=== PATIENT | male | born 1955 | race Caucasian/White ===

== ENCOUNTER 2017-04-29 11:22 | Observation (INO) | payer MEDICAID, OTHER ==
[2017-04-29 11:23] VITALS: BMI 28.1
--- NOTE | 2017-04-29 11:47 | C.PDOC ---
Time Seen by Provider: 04/29/17 11:40 Chief Complaint (Nursing): Weakness/Neurological Deficit History Per: Patient History/Exam Limitations: no limitations Current Symptoms Are (Timing): Still Present Past Medical History Reviewed: Historical Data, Nursing Documentation, Vital Signs Vital Signs: Last Vital Signs Temp 97.6 F 04/29/17 11:29 Pulse 58 L 04/29/17 11:29 Resp 18 04/29/17 11:29 BP 179/78 H 04/29/17 11:29 Pulse Ox 100 04/29/17 11:29 - Medical History PMH: HTN - [facility] Procedures VACCINATION NEC (02/05/13) Family History: States: Unknown Family Hx - Social History Hx Tobacco Use: No Hx Alcohol Use: Yes Hx Substance Use: No (Formerly used marijuana) - Immunization History Hx Tetanus Toxoid Vaccination: No Hx Influenza Vaccination: No Hx Pneumococcal Vaccination: No ED Course And Treatment O2 Sat by Pulse Oximetry: 100 (RA) Pulse Ox Interpretation: Normal Disposition - Disposition - Scribe Statement The provider has reviewed the documentation as recorded by the Scribe [place] Hutchinson All medical record entries made by the Scribe were at my direction and personally dictated by me. I have reviewed the chart and agree that the record accurately reflects my personal performance of the history, physical exam, medical decision making, and the department course for this patient. I have also personally directed, reviewed, and agree with the discharge instructions and disposition.
--- NOTE | 2017-04-29 12:00 | C.PDOC ---
History Of Present Illness 61 year old male presents to the ED with complaints of persistent localized right facial weakness and numbness beginning last night. Patient states "feels like when you go to the dentist and they give you a shot." He states sensations were constant but now has improved sensation. Patient has had similar episode in the past, several months ago, but notes symptoms spontaneously resolved. Patient denies other associated areas of weakness or numbness. PERSIST R FACIAL WEAKNESS AND NUMBNESS SINCE LAST NIGHT. LOCALIZED, "FEELS LIKE WHEN YOU GO TO THE DENTIST AND THEY GIVE YOU A SHOT". CONSTANT BUT NOW IMPROVED SENSATION. DENIES OTHER ASSOC WEAK/NUMB. PS HAD SIM EPISODE SEV MONTHS AGO BUT SPONT RESOLVED. EXAM NONTOXIC NEURO SEE NIH REMAINDER NEG Time Seen by Provider: 04/29/17 11:40 Chief Complaint (Nursing): Weakness/Neurological Deficit History Per: Patient History/Exam Limitations: no limitations Onset/Duration Of Symptoms: Hrs (began last night ) Current Symptoms Are (Timing): Still Present Recent travel outside of the [place]: No Additional History Per: Prior Records Past Medical History Reviewed: Historical Data, Nursing Documentation, Vital Signs Vital Signs: Last Vital Signs Temp 97.6 F 04/29/17 11:29 Pulse 66 04/29/17 13:05 Resp 12 04/29/17 13:05 BP 165/89 H 04/29/17 13:05 Pulse Ox 100 04/29/17 14:17 - Medical History PMH: HTN - [facility] Procedures VACCINATION NEC (02/05/13) Family History: States: Unknown Family Hx - Social History Hx Tobacco Use: No Hx Alcohol Use: Yes Hx Substance Use: No (Formerly used marijuana) - Immunization History Hx Tetanus Toxoid Vaccination: No Hx Influenza Vaccination: No Hx Pneumococcal Vaccination: No Review Of Systems Constitutional: Negative for: Fever, Chills Cardiovascular: Negative for: Chest Pain, Palpitations Respiratory: Negative for: Cough, Shortness of Breath Gastrointestinal: Negative for: Nausea, Vomiting, Abdominal Pain, Diarrhea Neurological: Positive for: Weakness (localized right side of face ), Numbness ( localized right side of face ) Physical Exam - Physical Exam Appears: Non-toxic, No Acute Distress Skin: Warm, Dry, No Rash Head: Atraumatic, Normacephalic, No Tenderness Eye(s): bilateral: Normal Inspection, PERRL, EOMI Oral Mucosa: Moist Neck: Supple Chest: Symmetrical, No Deformity Cardiovascular: Rhythm Regular, No Murmur Respiratory: No Rales, No Rhonchi, No Wheezing, Other (clear to auscultation bilaterally ) Gastrointestinal/Abdominal: Soft, No Tenderness, No Distention, No Guarding, No Rebound Extremity: Normal ROM, No Tenderness Neurological/Psych: Oriented x3 ED Course And Treatment - Laboratory Results Result Diagrams: 04/29/17 12:40 04/29/17 12:40 ECG: Interpreted By Me, Viewed By Me ECG Rhythm: Sinus Rhythm Rate From EC O2 Sat by Pulse Oximetry: 100 (RA) Pulse Ox Interpretation: Normal - Radiology CXR: Interpreted by Me, Viewed By Sd Nexus Criteria: Negative - CT Scan/US CT - Head Other Rad Studies (CT/US): Read By Radiologist, Radiology Report Reviewed CT/US Interpretation: PROCEDURE: CT HEAD WITHOUT CONTRAST. HISTORY: stroke alert. COMPARISON: None available. TECHNIQUE: Axial computed tomography images were obtained through the head/brain without intravenous contrast. Radiation dose: Total exam DLP = 1048.74 mGy-cm. This CT exam was performed using one or more of the following dose reduction techniques: Automated exposure control, adjustment of the mA and/or kV according to patient size, and/ or use of iterative reconstruction technique. FINDINGS: HEMORRHAGE: No intracranial hemorrhage. BRAIN: No mass effect or edema. No atrophy. Minimal chronic periventricular white matter lucency. Patchy subcortical white matter lucency bilaterally, consistent with chronic microvascular ischemic change. VENTRICLES: Unremarkable. No hydrocephalus. CALVARIUM: Unremarkable. PARANASAL SINUSES: Chronic ethmoid and sphenoid sinusitis. MASTOID AIR CELLS: Unremarkable as visualized. No inflammatory changes. OTHER FINDINGS: None. IMPRESSION: No evidence of acute infarct. Chronic microvascular ischemic change. No intracranial mass or hemorrhage. The findings this examination were discussed, by telephone, with Dr. Barber at 12:12 p.m. on 04/29/2017. Progress Note: EKG, CXR, Head CT, blood work, and labs were ordered. NIHSS Stroke Scale - Date/Time Evaluation Performed Date Performed: 04/29/17 Time Performed: 11:55 When Was NIHSS Performed: Baseline - How Severe is the Stroke Level of Consciousness: 0=Alert LOC to Questions: 0=Both comments correct LOC to commands: 0=Obeys both correctly Best Gaze: 0=Normal Visual: 0=No visual loss Facial: 1=Minor asymmetry Motor Arm - Left: 0=No drift Motor Arm - Right: 0=No drift Motor Leg - Left: 0=No drift Motor Leg - Right: 0=No drift Limb Ataxia: 0=Absent Sensory: 0=Normal Best Language: 0=No aphasia Dysarthia: 0=Normal articulation Extinction & Inattention (Neglect): 0=Normal, no object Score: 1 Severity Of Stroke: 1-4 = Minor Stroke Progress - Re-Evaluation Re-evaluation Note: 04/29/17 12:11 D/W DR GOMEZ: NO ACUTE FINDINGS D/W DR NOVAK WILL EVAL INE R 04/29/17 12:47 S/P EVAL DR NOVAK, RECOMMENDS FOR ADMISSION AND MRI. WILL CONSULT 04/29/17 13:18 D/W DR PATINO C/F PMD WILL ADMIT - Data Reviewed Data Reviewed: Lab, Diagnostic imaging, EKG, Old records - Critical Care Critical Care Time: 90 minutes rTPA Inclusion/Exclusion - Refusal of Treatment Patient Refused Treatment: No - Inclusion Criteria for Altepase Patient is 18 years or Older: Yes The Clinical Diagnosis of Ischemic Stroke That is Causing a Potentially Disabling Neurological Deficit: Yes Time of Onset is Well Established to be Less Than 270 Minute Before Treatment Would Begin: No Risk/Benefit Discussed With Patient/Family Member Present: No - Exclusion Criteria for Altepase Uncontrolled Hypertension at Time of Treatment (Systolic BP above 185 or Diastolic BP above 110 mmHg): No - Warning to TPA With Conditions Condition: Stroke Serevity Too Mild, Care Team Unable to Determine Eligibilty Disposition Counseled Patient/Family Regarding: Studies Performed, Diagnosis - Disposition Disposition: HOSPITALIZED Disposition Time: 13:19 Condition: STABLE - POA Present On Arrival: None - Clinical Impression Clinical Impression: Facial weakness, TIA (transient ischemic attack) - Scribe Statement The provider has reviewed the documentation as recorded by the Scribe [place] Hutchinson All medical record entries made by the [place] were at my direction and personally dictated by me. I have reviewed the chart and agree that the record accurately reflects my personal performance of the history, physical exam, medical decision making, and the department course for this patient. I have also personally directed, reviewed, and agree with the discharge instructions and disposition. Decision To Admit - Pt Status Changed To: Hospital Disposition Of: Observation - . Bed Request Type: Telemetry Admitting Physician: Marc Garcia Patient Diagnosis: Facial weakness, TIA (transient ischemic attack)
--- NOTE | 2017-04-29 12:21 | CT ---
PROCEDURE: CT HEAD WITHOUT CONTRAST. HISTORY: stroke alert COMPARISON: None available. TECHNIQUE: Axial computed tomography images were obtained through the head/brain without intravenous contrast. Radiation dose: Total exam DLP = 1048.74 mGy-cm. This CT exam was performed using one or more of the following dose reduction techniques: Automated exposure control, adjustment of the mA and/or kV according to patient size, and/or use of iterative reconstruction technique. FINDINGS: HEMORRHAGE: No intracranial hemorrhage. BRAIN: No mass effect or edema. No atrophy. Minimal chronic periventricular white matter lucency. Patchy subcortical white matter lucency bilaterally, consistent with chronic microvascular ischemic change. VENTRICLES: Unremarkable. No hydrocephalus. CALVARIUM: Unremarkable. PARANASAL SINUSES: Chronic ethmoid and sphenoid sinusitis MASTOID AIR CELLS: Unremarkable as visualized. No inflammatory changes. OTHER FINDINGS: None. IMPRESSION: No evidence of acute infarct. Chronic microvascular ischemic change. No intracranial mass or hemorrhage. The findings this examination were discussed, by telephone, with Dr. Barber at 12:12 p.m. on 04/29/2017. Areas are
--- NOTE | 2017-04-29 12:37 | RAD ---
PROCEDURE: CHEST RADIOGRAPH, 1 VIEW HISTORY: TIA COMPARISON: 02/05/2013 FINDINGS: LUNGS: No focal infiltrate or effusion. PLEURA: No pneumothorax or pleural fluid seen. CARDIOVASCULAR: Normal. OSSEOUS STRUCTURES: No significant abnormalities. VISUALIZED UPPER ABDOMEN: Normal. OTHER FINDINGS: None. IMPRESSION: No active disease.
[2017-04-29 12:43] LABS: BASO % 0.7 % (0.0-2.0); EOS # 0.1 K/uL (0.0-0.7); EOS % 1.4 % (0.0-4.0); HEMATOCRIT 42.4 % (35.0-51.0); LYMPH % 33.4 % (20.0-40.0); MEAN CELL VOLUME 90.7 fL (80.0-94.0); MEAN CORPUSCULAR HEMOGLOBIN 31.9 pg (27.0-31.0); MEAN CORPUSCULAR HGB CONC 35.1 g/dL (33.0-37.0); MEAN PLATELET VOLUME 9.8 fL (7.2-11.7); MONO # 0.5 K/uL (0.0-0.8); MONO % 7.8 % (0.0-10.0); NRBC % 0.1 % (0.0-2.0); RED CELL DISTRIBUTION WIDTH 12.7 % (11.5-14.5); WHITE BLOOD COUNT 5.9 K/uL (4.8-10.8)
[2017-04-29 12:57] LABS: CALCIUM 8.6 mg/dl (8.6-10.4); GFR AFRICAN-AMERICAN > 60; GLUCOSE,RANDOM 93 mg/dL (75-110)
[2017-04-29 13:00] LABS: BLOOD UREA NITROGEN 14 mg/dL (9-20); CARBON DIOXIDE 27 mmol/L (22-30); CHLORIDE 105 mmol/L (98-107); POTASSIUM 4.3 mmol/L (3.6-5.2); SODIUM 141 mmol/L (132-148)
[2017-04-29 15:28] VITALS: RESP 20
--- NOTE | 2017-04-29 15:56 | CP.PCM.CON ---
History of Present Illness - History of Present Illness History of Present Illness: Mr. Devine is a 61-year-old man with a past medical history of hypertension who states that last night he developed right facial numbness and it has still not subsided. He feels that it is similar to a numbness experienced when he goes to the dentist. There are no other focal deficits or other associated symptoms. Review of Systems - Review of Systems All systems: reviewed and no additional remarkable complaints except Past Patient History - Past Social History Smoking Status: Never Smoked - CARDIAC Hx Hypertension: Yes - PSYCHIATRIC Hx Substance Use: No (Formerly used marijuana) - SURGICAL HISTORY Hx Surgeries: No Meds Allergies/Adverse Reactions: Allergies Allergy/AdvReac Type Severity Reaction Status Date / Time No Known Allergies Allergy Verified 04/29/17 11:34 Physical Exam - Constitutional Appears: Well - Head Exam Head Exam: ATRAUMATIC, NORMAL INSPECTION, NORMOCEPHALIC - Eye Exam Eye Exam: EOMI, Normal appearance, PERRL - ENT Exam ENT Exam: Mucous Membranes Moist, Normal Exam - Neck Exam Neck exam: Positive for: Normal Inspection - Respiratory Exam Respiratory Exam: Clear to Auscultation Bilateral, NORMAL BREATHING PATTERN - Cardiovascular Exam Cardiovascular Exam: REGULAR RHYTHM, +S1, +S2 - GI/Abdominal Exam GI & Abdominal Exam: Normal Bowel Sounds, Soft. absent: Tenderness - Rectal Exam Rectal Exam: Deferred - Extremities Exam Extremities exam: Positive for: normal inspection - Back Exam Back exam: NORMAL INSPECTION - Neurological Exam Neurological exam: Alert, CN II-XII Intact, Normal Gait, Oriented x3, Reflexes Normal Additional comments: Decreased sensation over the V3 distribution on the right side as compared with the left. - Psychiatric Exam Psychiatric exam: Normal Affect, Normal Mood - Skin Skin Exam: Dry, Intact, Normal Color, Warm Results - Vital Signs Recent Vital Signs: Last Vital Signs Temp 97.9 F 04/29/17 15:27 Pulse 63 04/29/17 15:27 Resp 20 04/29/17 15:27 BP 197/86 H 04/29/17 15:27 Pulse Ox 98 04/29/17 15:27 - Labs Result Diagrams: 04/29/17 12:40 04/29/17 12:40 Labs: Laboratory Results - last 24 hr 04/29/17 04/29/17 12:40 12:40 WBC 5.9 RBC 4.67 Hgb 14.9 Hct 42.4 MCV 90.7 MCH 31.9 H MCHC 35.1 RDW 12.7 Plt Count 194 MPV 9.8 Neut % (Auto) 56.7 Lymph % (Auto) 33.4 [place] % (Auto) 7.8 Eos % (Auto) 1.4 Baso % (Auto) 0.7 Neut # 3.3 Lymph # 2.0 [place] # 0.5 Eos # 0.1 Baso # 0.0 Sodium 141 Potassium 4.3 Chloride 105 Carbon Dioxide 27 Anion Gap 13 BUN 14 Creatinine 0.6 L Est GFR ( Amer) > 60 Est GFR (Non-Af Amer) > 60 Random Glucose 93 Calcium 8.6 Troponin I 0.0130 - Imaging and Cardiology CT scan - head Status: Image reviewed by me, Report reviewed by me (No acute findings. ) Assessment & Plan (1) Rt facial numbness Assessment and Plan: Will obtain MRI of the brain and MRA of the head/neck to rule out a possible infarct in a small thalamic region or lacunar cortical. The patient is extremely hypertensive, but we will allow for permissive hypertension for now and only treat BP higher than 220/110 mm Hg. Continue aspirin 81 mg daily, check lipid panel HbA1c, TSH, B12, folate. Will start NS at 100 mL/hr. DVT Px , PT/OT eval. Thank you. Status: Acute Priority: High
[2017-04-29] MEDS ORDERED: Gadodiamide 287 mg/ml 20 ml IV ONE (16:34)
--- NOTE | 2017-04-29 18:42 | CP.PCM.HP ---
History of Present Illness - History of Present Illness History of Present Illness: chief complaints: Right-sided weakness History of present illness: 61-year-old male with history of hypertension, not on any medication came to the emergency room today with a feeling of numbness, heaviness, any weakness in the right side of the body. Patient is doing well, 3 days ago, but recently he started having some heaviness in the right upper , and also some numbness and involving the right side of the face, he was also feeling some swelling and drooping of the face last night. This morning he called me on the phone, and at this and to go to the emergency room. In the emergency room code Alert was done, seen by neurologist, CAT scan of the head was done nonspecifiPatient needed hospitalization. Currently he is complaining of pain in the back of the head, no visual symptoms , he is feeling better, symptoms of heaviness is still noted, on and off, involving the right side of the face and right upper asymmetry. He has no difficulty in swallowing, his speech is normal, he is able to ambulate , and walkwithout any problem. In March 18, 2016 patient went to the emergency room at [facility] with the rash. Patient stating that he was bit by the tick, and he developed significant rash around bite area in the right forearm region. But when he went to the emergency room he was seen by, and that time it was noticed that he was having crepe sole scourer rash, was thought to be an allergy, and given. Prednisone. Later patient went to see PMD, Dr. Souza, and the blood works was done, and the symptoms was persistently noted. Since then he is concerned that he may have a Lyme disease, and he is taking penicillin antibiotic by himself. He is having a rash on and off, especially generalized and in the anterior abdominal area, brought in, and legs. The rash is itching, sometimes after eating, associate with the impetiginous lesion, and the skin breakdown and watery liquid secretion noted. No blisters. Patient is also complaining of some generalized pain, body pain on and off. Past medical history: hypertension, not on any medication Allergy: No known drug allergy. Personal history: Patient is a nonsmoker, nonalcoholic. No drug abuse. Currently not working Family history noncontributory. Review of systems: Patient is currently having some headache, denies any chest pain or shortness of breath. right-sided weakness,facial droop, noted. On examination: HEENT PERRLA, neck supple No thyromegaly was noted and no cervical adenopathy noted Chest bilateral good air entry, no wheezing or rales noted CVS regular heart sound, no murmur Abdomen soft and no organomegaly Extremities no pedal edema, no leg swelling, pedal pulses are good. [employer] alert awake oriented x3 ossibly mild residual weakness in the right CAT scan of the head is nonspecific. Labs nonspecific. eKG normal sinus rhythm. Elevated blood pressure noted. Assessment and recommendation: 60-year-old male came to the office with a multiple skin lesions. with a history of hypertension, elevated blood pressure noted. Will start the patient on low-dose anti- hypertensions. Low-dose aspirin. Carotid Doppler, echocardiogram, serology. Less likely vascular in origin. We will get a connective tissue workup also. underlying demyelinating disease cannot be ruled out MRI currently pending Lyme titer advised. CBC, ESR, Lyme screening, Lyme titer. CMP advised. Will follow the patient. Present on Admission - Present on Admission Any Indicators Present on Admission: No History of DVT/PE: No History of Uncontrolled Diabetes: No Urinary Catheter: No Decubitus Ulcer Present: No Past Patient History - Past Medical History & Family History Past Medical History?: Yes - Past Social History Smoking Status: Former Smoker - CARDIAC Hx Cardiac Disorders: Yes Hx Hypertension: Yes - PULMONARY Hx Respiratory Disorders: Yes Hx Asthma: Yes (childhood) - NEUROLOGICAL Hx Neurological Disorder: No - HEENT Hx HEENT Problems: No - RENAL Hx Chronic Kidney Disease: No - ENDOCRINE/METABOLIC Hx Endocrine Disorders: No - HEMATOLOGICAL/ONCOLOGICAL Hx Blood Disorders: No - INTEGUMENTARY Hx Dermatological Problems: No - MUSCULOSKELETAL/RHEUMATOLOGICAL Hx Musculoskeletal Disorders: No Hx Falls: No - GASTROINTESTINAL Hx Gastrointestinal Disorders: No - GENITOURINARY/GYNECOLOGICAL Hx Genitourinary Disorders: No - PSYCHIATRIC Hx Psychophysiologic Disorder: No Hx Substance Use: No (Formerly used marijuana) - SURGICAL HISTORY Hx Surgeries: No - ANESTHESIA Hx Anesthesia: Yes Hx Anesthesia Reactions: No Hx Malignant Hyperthermia: No Has any member of the family had a problem w/ anesthesia?: No Meds Allergies/Adverse Reactions: Allergies Allergy/AdvReac Type Severity Reaction Status Date / Time No Known Allergies Allergy Verified 04/29/17 11:34 Results - Vital Signs Recent Vital Signs: Last Vital Signs Temp 97.9 F 04/29/17 15:27 Pulse 68 04/29/17 18:23 Resp 20 04/29/17 15:27 BP 197/86 H 04/29/17 15:27 Pulse Ox 98 04/29/17 15:27 - Labs Result Diagrams: 04/29/17 12:40 04/29/17 12:40 Labs: Laboratory Results - last 24 hr 04/29/17 04/29/17 12:40 12:40 WBC 5.9 RBC 4.67 Hgb 14.9 Hct 42.4 MCV 90.7 MCH 31.9 H MCHC 35.1 RDW 12.7 Plt Count 194 MPV 9.8 Neut % (Auto) 56.7 Lymph % (Auto) 33.4 [place] % (Auto) 7.8 Eos % (Auto) 1.4 Baso % (Auto) 0.7 Neut # 3.3 Lymph # 2.0 [place] # 0.5 Eos # 0.1 Baso # 0.0 Sodium 141 Potassium 4.3 Chloride 105 Carbon Dioxide 27 Anion Gap 13 BUN 14 Creatinine 0.6 L Est GFR ( Amer) > 60 Est GFR (Non-Af Amer) > 60 Random Glucose 93 Calcium 8.6 Troponin I 0.0130
[2017-04-29] MEDS: Sodium Chloride 0.9% 1,000 ML IV SCH (22:46)
[2017-04-30 07:54] LABS: BASO % 0.5 % (0.0-2.0); EOS # 0.1 K/uL (0.0-0.7); EOS % 1.3 % (0.0-4.0); HEMATOCRIT 44.5 % (35.0-51.0); LYMPH % 37.3 % (20.0-40.0); MEAN CELL VOLUME 91.1 fL (80.0-94.0); MEAN CORPUSCULAR HEMOGLOBIN 31.2 pg (27.0-31.0); MEAN CORPUSCULAR HGB CONC 34.2 g/dL (33.0-37.0); MEAN PLATELET VOLUME 10.1 fL (7.2-11.7); MONO # 0.4 K/uL (0.0-0.8); MONO % 7.2 % (0.0-10.0); NRBC % 0.1 % (0.0-2.0); WHITE BLOOD COUNT 5.3 K/uL (4.8-10.8)
[2017-04-30 09:06] LABS: THYROID STIMULATING HORMONE 0.74 mIU/L (0.46-4.68)
[2017-04-30 09:41] LABS: FOLATE 13.1 ng/mL
--- NOTE | 2017-04-30 09:56 | MRI ---
PROCEDURE: MRI BRAIN WITH AND WITHOUT CONTRAST HISTORY: CVA COMPARISON: Noncontrast head CT from 04/29/2017 TECHNIQUE: Multiplanar, multisequence MR images of the brain were obtained with and without intravenous contrast enhancement. FINDINGS: HEMORRHAGE: None DWI: No evidence of an acute or early subacute infarction. BRAIN PARENCHYMA: There are moderate chronic microangiopathic changes. There is no mass, mass effect or abnormal extra-axial fluid collection. The midline sagittal structures are normal. ENHANCEMENT: No abnormal intracranial enhancement. VENTRICLES: There is mild age-related global parenchymal volume loss and proportionate enlargement of the ventricles and cortical sulci. CRANIUM: The skull base and calvarium are normal. ORBITS: Grossly unremarkable. PARANASAL SINUSES/MASTOIDS: There is mild mucosal thickening in the paranasal sinuses and fluid level in the left sphenoid chamber. VASCULAR SYSTEM: Skull base flow voids intact. OTHER FINDINGS: None . IMPRESSION: No acute intracranial abnormality. Specifically, no evidence of acute infarction. Moderate chronic microangiopathic changes and mild age-related global parenchymal volume loss. Fluid level in the left sphenoid chamber may represent acute sinusitis in the appropriate clinical setting.
[2017-04-30] MEDS: Sodium Chloride 0.9% 1,000 ML IV SCH (10:15)
[2017-04-30 15:49] VITALS: BP 164/77; TEMP 97.9; O2SAT 98
[2017-04-30 18:33] VITALS: PULSE 66
--- NOTE | 2017-04-30 21:12 | CARD ---
APPROVED REPORT EXAM: Two-dimensional and M-mode echocardiogram with Doppler and color Doppler. Other Information Quality : GoodRhythm : INDICATION CVA/TIA RISK FACTORS Hypertension 2D DIMENSIONS IVSd1.1 (0.7-1.1cm)LVDd4.5 (3.9-5.9cm) PWd1.0 (0.7-1.1cm)LVDs3.0 (2.5-4.0cm) FS (%) 34.1 %LVEF (%)63.1 (>50%) M-Mode DIMENSIONS RVDd1.66 (2.1-3.2cm)Left Atrium (MM)3.78 (2.5-4.0cm) IVSd0.62 (0.7-1.1cm)Aortic Root2.63 (2.2-3.7cm) LVDd4.98 (4.0-5.6cm)Aortic Cusp Exc.1.94 (1.5-2.0cm) PWd0.75 (0.7-1.1cm)FS (%) 39 % LVDs3.06 (2.0-3.8cm)LVEF (%)69 (>50%) Mitral Valve MV E Wrhhcyuz08.0cm/sMV A Esufnwbm75.0cm/sE/A ratio0.8 TDI E/Lateral E'0.0E/Medial E'0.0 Tricuspid Valve TR Peak [id number]/sTR Peak Gr.[id number] LEFT VENTRICLE The left ventricle is normal size. There is normal left ventricular wall thickness. The left ventricular function is normal. The left ventricular ejection fraction is within the normal range. There is normal LV segmental wall motion. Transmitral Doppler flow pattern is Grade I-abnormal relaxation pattern. RIGHT VENTRICLE The right ventricle is normal size. There is normal right ventricular wall thickness. The right ventricular systolic function is normal. ATRIA The left atrium size is normal. The right atrium size is normal. AORTIC VALVE The aortic valve is mildly thickened. No aortic regurgitation is present. There is no aortic valvular stenosis. MITRAL VALVE The mitral valve is mildly thickened. There is no mitral valve stenosis. There is no mitral valve regurgitation noted. TRICUSPID VALVE The tricuspid valve is normal in structure. GREAT VESSELS The aortic root is normal in size. The IVC is normal in size and collapses >50% with inspiration. <Conclusion> The left ventricle is normal size. There is normal left ventricular wall thickness. The left ventricular function is normal. The left ventricular ejection fraction is within the normal range. There is normal LV segmental wall motion. Transmitral Doppler flow pattern is Grade I-abnormal relaxation pattern.
--- NOTE | 2017-04-30 21:53 | CARD ---
APPROVED REPORT EKG Measurement Heart [id number] <Conclusion> Normal sinus rhythm Normal ECG
[2017-05-01] MEDS ORDERED: Pneumococcal 23-Valent Vaccine IM ONE (10:00)
[2017-05-01] MEDS ORDERED: Influenza Vaccine 60 mcg/0.5 mL SYR (4YR UP) IM ONE (10:00)
--- NOTE | 2017-05-01 13:04 | VASCLAB ---
PROCEDURE: HISTORY: cva COMPARISON: None available. TECHNIQUE: Grayscale and duplex Doppler evaluation of the cervical carotid and vertebral arteries were performed. The common carotid, carotid bifurcations and cervical Internal Carotid Artery (ICA) and proximal External Carotid Artery (ECA) were evaluated. The vertebral arteries were evaluated for gross patency and flow direction. Report prepared by Nando Leonard, BS, RVT FINDINGS: RIGHT CAROTID ARTERIES: 1. Common Carotid Artery: No significant focal plaque formation of the right common carotid artery. Maximum Peak Systolic velocity: 76 cm/sec: End-diastolic velocity 19 cm/sec. 2. Carotid Bifurcation: plaque formation. Maximum Peak Systolic velocity: 70 cm/sec: End-diastolic velocity 20 cm/sec. 3. Internal Carotid Artery: Plaque description: 3.1. Proximal Segment: Peak systolic velocity 74 cm/sec: End-diastolic velocity 23 cm/sec - % stenosis 0-15% 3.2. Middle Segment: Peak systolic velocity 86 cm/sec: End-diastolic velocity 25 cm/sec - % stenosis 0-15% 3.3. Distal Segment: Peak systolic velocity 90 cm/sec: End-diastolic velocity 30 cm/sec - % stenosis 0-15% 4. External Carotid Artery: No significant focal plaque formation. Peak systolic velocity 116 cm/sec 5. ICA/CCA Ratio: 1.2 LEFT CAROTID ARTERIES: 1. Common Carotid Artery: No significant focal plaque formation of the left common carotid artery. Maximum Peak Systolic velocity: 73 cm/sec: End-diastolic velocity 20 cm/sec. 2. Carotid Bifurcation: plaque formation. Maximum Peak Systolic velocity: 62 cm/sec: End-diastolic velocity 16 cm/sec. 3. Internal Carotid Artery: Plaque description: 3.1. Proximal Segment: Peak systolic velocity 80 cm/sec: End-diastolic velocity 26 cm/sec - % stenosis 0-15% 3.2. Middle Segment: Peak systolic velocity 94 cm/sec: End-diastolic velocity 32 cm/sec - % stenosis 0-15% 3.3. Distal Segment: Peak systolic velocity 87 cm/sec: End-diastolic velocity 30 cm/sec - % stenosis 0-15% 4. External Carotid Artery: No significant focal plaque formation. Peak systolic velocity 89 cm/sec 5. ICA/CCA Ratio: 1.3 VERTEBRAL ARTERIES: 1. Right Vertebral Artery: The right vertebral artery flow direction is antegrade. 2. Left Vertebral Artery: The left vertebral artery flow direction is antegrade. OTHER FINDINGS: 1. Right Brachial Blood pressure: 158 mmHg. 2. Left Brachial Blood pressure: 150 mmHg. IMPRESSION: RIGHT: Duplex scan does not suggest hemodynamically significant stenosis of the right extracranial carotid arteries. LEFT: Duplex scan does not suggest hemodynamically significant stenosis of the left extracranial carotid arteries.
== END 2017-04-30 17:00 | disposition home or self-care (01) ==
LOC: C.ER 11:22 → C.9E 13:19 → C.5S 14:02
PROVIDERS: ADMIT Internal Medicine; ATTEND Internal Medicine
DX: R53.1 Weakness (principal); R29.810 Facial weakness; R20.0 Anesthesia of skin; I10 Essential (primary) hypertension; R21 Rash and other nonspecific skin eruption; Z87.891 Personal history of nicotine dependence
CPT/HCPCS: 36415; 70450; 70553; 71010; 80048; 80061; 82607; 82746; 83036; 83520; 84443; 84484; 85025; 85651; 86038; 86140; 86617; 93005; 93306; 93880; 99285; A9579; G0378; J7040

== ENCOUNTER 2018-02-05 04:00 | Emergency (ER) | payer OTHER ==
[2018-02-05 04:00] VITALS: BMI 28.1
[2018-02-05] MEDS ORDERED: Sodium Chloride 0.9% 1,000 ML IV ONE (04:11)
--- NOTE | 2018-02-05 04:17 | C.PDOC ---
History Of Present Illness 62 y/o male presents to the ED complaining that he awoke suddenly at 3:00am with severe abdominal pain. Associated with nausea and ~10 episodes of non- bilious, non-bloody vomiting. Patient denies having similar episodes of pain in the past. PMHx is significant only for hypertension. Denies history of abdominal surgeries in the past. Patient otherwise denies any diarrhea, bloody stools, UTI symptoms, fever, or chills. Time Seen by Provider: 02/05/18 04:02 Chief Complaint (Nursing): Abdominal Pain History Per: Patient History/Exam Limitations: no limitations Onset/Duration Of Symptoms: Hrs (x1) Current Symptoms Are (Timing): Still Present Associated Symptoms: Nausea, Vomiting Past Medical History Reviewed: Historical Data, Nursing Documentation, Vital Signs Vital Signs: Last Vital Signs Temp 98.4 F 02/05/18 04:10 Pulse 76 02/05/18 05:53 Resp 22 02/05/18 05:53 BP 179/85 H 02/05/18 05:53 Pulse Ox 96 02/05/18 05:53 - Medical History PMH: Asthma (childhood), HTN Denies: Chronic Kidney Disease Surgical History: No Surg Hx - [facility] VACCINATION NEC (02/05/13) Family History: States: Unknown Family Hx - Social History Hx Tobacco Use: No Hx Alcohol Use: No Hx Substance Use: No (Formerly used marijuana) - Immunization History Hx Tetanus Toxoid Vaccination: No Hx Influenza Vaccination: No Hx Pneumococcal Vaccination: No Review Of Systems Except As Marked, All Systems Reviewed And Found Negative. Constitutional: Negative for: Fever, Chills Cardiovascular: Negative for: Chest Pain Respiratory: Negative for: Shortness of Breath Gastrointestinal: Positive for: Nausea, Vomiting, Abdominal Pain. Negative for : Diarrhea, Hematochezia Genitourinary: Negative for: Dysuria, Frequency, Hematuria Musculoskeletal: Negative for: Back Pain Skin: Negative for: Rash Neurological: Negative for: Weakness, Numbness Physical Exam - Physical Exam Appears: Non-toxic, In Acute Distress (in severe painful distress) Skin: Warm, Diaphoretic Head: Atraumatic, Normacephalic Eye(s): bilateral: Normal Inspection, PERRL, EOMI Neck: Normal ROM Chest: Symmetrical, No Tenderness Cardiovascular: Rhythm Regular, No Murmur Respiratory: Normal Breath Sounds, No Rales, No Rhonchi, No Wheezing Gastrointestinal/Abdominal: Bowel Sounds (normal), Soft, No Tenderness (Pt reports pain in RLQ, no tenderness elicited on exam), No Distention, No Guarding , No Rebound Back: Normal Inspection, No CVA Tenderness Extremity: Bilateral: Atraumatic, Normal Color And Temperature, Normal ROM Pulses: Left Dorsalis Pedis: Normal, Right Dorsalis Pedis: Normal Neurological/Psych: Oriented x3, Normal Speech ED Course And Treatment - Laboratory Results Result Diagrams: 02/05/18 04:24 02/05/18 04:24 - Other Rad x-ray obstructive series X-Ray: Interpreted by Me, Viewed By Me Interpretation: Negative, no obstruction. Medical Decision Making Medical Decision Making: Initial Impression: Abdominal pain, nausea, vomiting Initial Plan: --CMP --Pro-BNP --Lactic acid --Lipase --Troponin I --CBC --PTT/PT --Obstructive series X-Ray --NSS IV fluids --Zofran 4 mg IVP --Fentanyl 100mcg IVP --Reassessment X-ray is negative. Labs reviewed, negative troponin. Negative BNP. Lipase 93. Patient continues to complain of severe pain. Ordered CT Abd/Pelvis with IV contrast. Disposition Counseled Patient/Family Regarding: Diagnosis - Disposition Disposition: HOME/ ROUTINE Disposition Time: 06:52 Condition: GOOD Forms: [facility] (Honduran) - Clinical Impression Clinical Impression: Abdominal pain, Nausea, Vomiting - Scribe Statement The provider has reviewed the documentation as recorded by the Beatriz Alva Provider Attestation: All medical record entries made by the Beatriz were at my direction and personally dictated by me. I have reviewed the chart and agree that the record accurately reflects my personal performance of the history, physical exam, medical decision making, and the department course for this patient. I have also personally directed, reviewed, and agree with the discharge instructions and disposition.
[2018-02-05] MEDS ORDERED: Sodium Chloride 0.9% 1,000 ML ONE (04:19)
[2018-02-05 04:27] LABS: BASO # 0.1 K/uL (0.0-0.2); BASO % 0.5 % (0.0-2.0); EOS # 0.2 K/uL (0.0-0.7); EOS % 1.9 % (0.0-4.0); HEMOGLOBIN 15.9 g/dL (12.0-18.0); LYMPH # 4.5 K/uL (1.0-4.3); LYMPH % 44.5 % (20.0-40.0); MEAN CELL VOLUME 91.5 fL (80.0-94.0); MEAN CORPUSCULAR HEMOGLOBIN 31.7 pg (27.0-31.0); MEAN CORPUSCULAR HGB CONC 34.7 g/dL (33.0-37.0); MONO # 0.7 K/uL (0.0-0.8); NEUT # 4.7 K/uL (1.8-7.0); NEUT % 46.1 % (50.0-75.0); NRBC % 0.1 % (0.0-2.0); WHITE BLOOD COUNT 10.2 K/uL (4.8-10.8)
[2018-02-05 04:34] LABS: PROTHROMBIN TIME 11.2 SECONDS (9.7-12.2)
[2018-02-05 04:39] LABS: ALB/GLOB RATIO 1.6 (1.0-2.1); ALBUMIN 4.7 g/dL (3.5-5.0); ALT/SGPT 49 U/L (21-72); AST/SGOT 35 U/L (17-59); BLOOD UREA NITROGEN 14 mg/dL (9-20); CALCIUM 9.5 mg/dl (8.6-10.4); GFR NON-AFRICAN AMERICAN > 60; LIPASE 93 U/L (23-300)
[2018-02-05 05:06] LABS: B-TYPE NATRIURETIC PEPTIDE < 11.1 pg/mL (0-900)
[2018-02-05 08:16] VITALS: TEMP 98.4
[2018-02-05 09:16] LABS: VENOUS BLOOD GAS BASE EXCESS 2.4 mmol/L (0.0-2.0); VENOUS BLOOD GAS PCO2 51 mmHg (40-60); VENOUS BLOOD GAS PO2 23 mm/Hg (30-55); VENOUS BLOOD PH 7.36 (7.32-7.43)
[2018-02-05] MEDS ORDERED: Sodium Chloride 0.9% 1,000 ML IV STA (09:42)
[2018-02-05] MEDS ORDERED: Lidocaine 122 MG in Sodium Chloride 0.9% 100 ML IV STA (09:42)
--- NOTE | 2018-02-05 09:56 | CT ---
Date of service: 02/05/2018 PROCEDURE: CT Abdomen and Pelvis with contrast HISTORY: Abdominal pain COMPARISON: None. TECHNIQUE: Contrast dose: 100 cc Omnipaque 300 Radiation dose: Total exam DLP = 818.35 mGy-cm. This CT exam was performed using one or more of the following dose reduction techniques: Automated exposure control, adjustment of the mA and/or kV according to patient size, and/or use of iterative reconstruction technique. FINDINGS: LOWER THORAX: Unremarkable. LIVER: The liver exhibits relatively normal size measuring approximately 16.7 cm in CC dimension. Mild to moderate fatty hepatic infiltration. No obvious hepatic mass collection or calcification. GALLBLADDER AND BILE DUCTS: Unremarkable. PANCREAS: The pancreas is slightly atrophic and fatty replaced. No pancreatic masses collections or calcifications. No significant pancreatic ductal dilatation. SPLEEN: Unremarkable. ADRENALS: Unrem there is a small approximately 11 mm elliptical shaped low-attenuation lesion within the right adrenal gland at exhibits Hounsfield units in the low 40s. . This is not felt to represent an adenoma given high Hounsfield values. Follow-up non emergent MRI of the adrenal glands recommended the to exclude other pathology. KIDNEYS AND URETERS: There is a small approximately 4.8 mm calculus within the region the right UVJ possibly within the intramural portion of the distal ureter with mild right-sided hydronephrosis. Small to medium amount of right-sided perinephric fluid suggesting ruptured calyx. . There also surrounding infiltration changes in the perinephric fat as and periureteric fat as well. No other evidence of additional nephrolithiasis. There is a small approximately 2.3 cm elliptical shaped cyst arising from the anterior cortex upper/ midpole left kidney. . VASCULATURE: Unremarkable. No aortic aneurysm. BOWEL: Unremarkable. No obstruction. No gross mural thickening. APPENDIX: Normal appendix. PERITONEUM: Unremarkable. No free fluid. No free air. Tiny fat containing umbilical hernia. Small bilateral fat containing inguinal hernias. . LYMPH NODES: Unremarkable. No enlarged lymph nodes. BLADDER: Urinary bladder is incompletely distended which in part accounts for slight thick-walled appearance. Possibility of a cystitis not excluded. REPRODUCTIVE: Prostate gland measures approximately 4.3 cm in transverse dimension. Prostate gland slightly heterogeneous and contains numerous small prostatic calcifications. BONES: Mild multilevel degenerative spondylosis of the lower thoracic and lumbar spine. . Sclerotic changes both SI joints. OTHER FINDINGS: None. IMPRESSION: 4.8 mm calculus within the distal right ureter likely within the intramural portion of the right ureter with mild right-sided hydronephrosis. There is moderate amount of right-sided perinephric fluid of likely related to a ruptured calyx. Perinephric infiltration is also present with infiltration about the entire right ureter. Small left renal cyst. Small approximately 11 mm right adrenal nodule of uncertain etiology though Hounsfield units are not compatible with simple adenoma. Followup nonemergent MRI of the adrenal glands recommended. Fatty infiltration. Findings discussed with Dr. Barber at approximately 9:35 a.m. with written down and read back verification.
[2018-02-05] MEDS ORDERED: Lidocaine 122 MG in Sodium Chloride 0.9% 100 ML IV ONE (10:15)
--- NOTE | 2018-02-05 10:32 | RAD ---
Date of service: 02/05/2018 PROCEDURE: Radiographs of the chest and abdomen (obstructive series) HISTORY: abd pain COMPARISON: No prior. TECHNIQUE: AP radiograph of the chest, with upright and supine radiographs of the abdomen. FINDINGS: CHEST: Lungs: Clear. Cardiovascular: Normal size heart. No pulmonary vascular congestion. Pleura: No pleural fluid. No pneumothorax. Other findings: None. ABDOMEN AND PELVIS: Bowel: There is some dilatation of small-bowel loops in the right jeffrey abdomen measuring up to 3.2 cm greatest transverse dimension with a moderate amount retained fecal material scattered throughout the large bowel. No large bowel collapse identified grossly. This pattern may reflect an early ileus or even distal small-bowel obstruction though the latter is not definitive. No air-fluid levels are identified throughout the abdomen. . Free air: None. Bones: Unremarkable. Other findings: None. IMPRESSION: 1. Nonacute chest radiograph. 2. Nonspecific dilatation of small-bowel loops in the right jeffrey abdomen is identified without large bowel collapse. Is difficult to completely exclude potential developing ileus or early small bowel obstruction. Clinical correlation and follow-up imaging is recommended.
[2018-02-05 11:10] LABS: VENOUS BLOOD GAS PCO2 43 mmHg (40-60); VENOUS BLOOD GAS PO2 45 mm/Hg (30-55); VENOUS BLOOD PH 7.38 (7.32-7.43)
[2018-02-05 12:33] LABS: VENOUS BLOOD GAS BASE EXCESS 1.4 mmol/L (0.0-2.0); VENOUS BLOOD GAS PCO2 52 mmHg (40-60); VENOUS BLOOD GAS PO2 27 mm/Hg (30-55); VENOUS BLOOD PH 7.34 (7.32-7.43)
[2018-02-05 13:22] VITALS: BP 134/70; PULSE 89; RESP 16; O2SAT 97
== END 2018-02-05 13:21 | disposition home or self-care (01) ==
LOC: C.ER 04:00
DX: N13.2 Hydronephrosis with renal and ureteral calculous obstruction (principal); R10.9 Unspecified abdominal pain; R11.2 Nausea with vomiting, unspecified
CPT/HCPCS: 74022; 74177; 80053; 82803; 83605; 83690; 83880; 84484; 85025; 85610; 85730; 96361; 96374; 96375; 96376; 99285; J1885; J2001; J2405; J3010; J7030